=== PATIENT | female | born 1985 | race Caucasian/White ===

== ENCOUNTER 2022-12-15 13:05 | Outpatient (CLI) | payer MEDICAID ==
[2022-12-15 19:55] LABS: BASOPHILS % (AUTO) 0.8 %; EOSINOPHILS # (AUTO) 0.2 10^3/uL (0.0-0.7); EOSINOPHILS % (AUTO) 3.5 %; HCT - HEMATOCRIT 35.2 % (37.0-47.0); HGB - HEMOGLOBIN 10.7 g/dL (12.0-16.0); LYMPHOCYTES # (AUTO) 1.8 10^3/uL (1.5-3.5); LYMPHOCYTES % (AUTO) 36.2 %; MEAN CORPUSCULAR HEMOGLOBIN 24.1 pg (27.0-31.0); MEAN CORPUSCULAR HGB CONC 30.4 g/dL (32.0-36.0); MEAN CORPUSCULAR VOLUME 79.3 fL (81.0-99.0); MEAN PLATELET VOLUME 8.9 fL (7.9-10.8); MONOCYTES # (AUTO) 0.4 10^3/uL (0.0-1.0); MONOCYTES % (AUTO) 7.9 %; NEUTROPHILS # (AUTO) 2.5 10^3/uL (1.5-6.6); NEUTROPHILS % (AUTO) 51.4 %; PLT - PLATELET COUNT 231 10^3/uL (130-450); RED BLOOD COUNT 4.44 10^6/uL (4.20-5.40); RED CELL DISTRIBUTION WIDTH 15.1 % (12.0-15.0); WHITE BLOOD COUNT 4.8 x10^3/uL (4.8-10.8)
[2022-12-15 20:34] LABS: ALBUMIN/GLOBULIN RATIO 1.7 (1.0-2.2); BILIRUBIN,TOTAL 0.2 mg/dL (0.2-1.0); CALCIUM 8.6 mg/dL (8.5-10.3); CREATININE 0.8 mg/dL (0.4-1.0); TOTAL PROTEIN 6.4 g/dL (6.7-8.2)
[2022-12-17 08:09] LABS: RPR Non Reactive (Non Reactive)
== END 2022-12-15 13:06 | disposition home or self-care (01) ==
LOC: LAB.S 13:05
PROVIDERS: ATTEND Family Medicine
DX: F11.20 Opioid dependence, uncomplicated (principal)
CPT/HCPCS: 36415; 80053; 81599; 85025; 86480; 86592

== ENCOUNTER 2023-01-14 08:22 | Outpatient (CLI) | payer MEDICAID ==
--- NOTE | 2023-01-14 11:16 | Ultrasound Report ---
LIMITED ULTRASOUND OF LEFT BREAST: 01/14/2023 CLINICAL: Palpable bilateral breast lumps. Comparison is made to exam dated: 01/14/2023 mammogram - [facility]. Color flow ultrasound of the left breast 3-4 o'clock region was performed on the areas of interest. Butt scale images of the real-time examination were reviewed. There are 2 adjacent oval cyst in the left breast at 3 o'clock middle depth. These cysts are hypoech oic. One likely correlates with mammography findings and one is incidental. Color flow imaging demo nstrates that there is no vascularity present. IMPRESSION: BENIGN There is no sonographic evidence of malignancy. The oval cyst in the left breast is benign. A 3 year screening mammogram is recommended. This exam was interpreted at Station ID: [id number]. Electronically Signed By: Olga Briseno M.D. lk/:01/14/2023 09:56:32 Ultrasound BI-RADS: 2 Benign BI-RADS CATEGORY: (2) - 2 Mammogram [id number] 3 year screening LATERALITY: (B)
--- NOTE | 2023-01-14 11:16 | Mammography Report ---
BILATERAL DIGITAL DIAGNOSTIC MAMMOGRAM 3D/2D WITH EXAGGERATED CC: 01/14/2023 CLINICAL: Baseline exam. Multiple right breast lumps. No prior exams were available for comparison. Both breasts are extremely dense, which lowers the sensitivity of mammography (category d />75% gland ular tissue). There is a mass with an obscured margin in the left breast at 4 o'clock posterior depth. No other significant masses, calcifications, or other findings are seen in either breast. IMPRESSION: INCOMPLETE: NEEDS ADDITIONAL IMAGING EVALUATION The mass in the left breast is indeterminate. A targeted ultrasound of the left breast is recommende d and will be performed immediately following this exam. Based on the Tyrer Cuzick model (a risk assessment model) the patients lifetime risk is 14.3% and he r 10 year risk is 1.3%. According to the ACR, ACS, and NCCN guidelines, an annual breast MRI exam tolu ng with mammogram is recommended if the patients lifetime risk is 20% or greater. This exam was interpreted at Station ID: [id number]. NOTE: For mammograms, a report in lay terms will be sent to the patient. Approximately 15% of breast malignancies will not be visualized mammographically. In the management of a palpable breast mass, a negative mammogram must not discourage biopsy of a clinically suspicious lesion. Electronically Signed By: Olga Briseno M.D. lk/:01/14/2023 09:08:15 ACR BI-RADS Category 0: Incomplete 3340F PARENCHYMAL PATTERN: (VD) - The breast(s) demonstrate(s) extremely dense parenchyma, limiting the sen sitivity of mammography. BI-RADS CATEGORY: (0) - 0 Ultrasound [id number] Immediate follow-up LATERALITY: (B)
== END 2023-01-14 08:23 | disposition home or self-care (01) ==
LOC: DI 08:22
PROVIDERS: ATTEND Nurse Practitioner
DX: R92.8 Other abnormal and inconclusive findings on diagnostic imaging of breast (principal); N60.02 Solitary cyst of left breast